=== PATIENT | female | born 1980 | race Caucasian/White ===

== ENCOUNTER 2017-08-15 21:26 | Emergency (ER) | END 2017-08-16 01:14 | disposition left against medical advice (07) ==

== ENCOUNTER 2018-02-16 17:42 | Emergency (ER) | END 2018-02-16 21:55 | disposition home or self-care (01) ==

== ENCOUNTER 2018-11-13 19:09 | Emergency (ER) | payer MEDICAID, OTHER ==
[~2018-11-13] VITALS: Ht 170.2 cm; Wt 128.2 kg
[~2018-11-13 19:09] MED LIST: IBUP-1542 PO
[2018-11-13 19:18] VITALS: Ht 170.2 cm; Wt 128.2 kg
[2018-11-13] MEDS ORDERED: KETOROLAC 30 MG INJ IM STA (20:45)
--- NOTE | 2018-11-13 20:45 | ERD ---
ER Documentation Chief Complaint Chief Complaint c/o rt knee pain. states was walking downstairs and missed a step. HPI 38-year-old female presents emergency department with complaints of right knee pain. Stated that she was walking and stair, this morning at around 6 AM when she accidentally missed a step, twisted her right knee. She was able to walk but with pain after the injury. LMP: Last month. A0. Denies headache, head injury, loss of consciousness, dizziness, neck pain, neck stiffness, throat pain, difficulty swallowing, difficulty breathing lying flat, shoulder pain, chest pain, back pain, abdominal pain, nausea, vomiting, constipation, diarrhea, urinary symptoms, or possibility being , loss of bowel and bladder control,numbness or tingling sensation, calf pain, recent travel, recent major surgery in the last 3 weeks, calf pain, recent long travel, recent exposure to any illness, recent antibiotic use in the last 3 months, fever, chills, seizures. Past medical history: Surgical history: Social: Denies smoking, use of alcoholic beverages, use of illegal drugs. ROS All systems reviewed and are negative except as per history of present illness. Medications Home Meds Active Scripts Ibuprofen* (Motrin*) 800 Mg Tab, 800 MG PO Q6H PRN for PAIN AND OR ELEVATED TEMP, #30 TAB Prov:MATHEW LOPEZ 11/13/18 Ibuprofen* (Ibuprofen*) 600 Mg Tablet, 600 MG PO Q6 for 3 Days, TAB Prov:NIEVES HENRIQUEZ 02/16/18 Allergies Allergies: Coded Allergies: No Known Drug Allergies (Verified Allergy, Unknown, 11/13/18) PMhx/Soc Medical and Surgical Hx: pt denies Medical Hx, pt denies Surgical Hx Hx Alcohol Use: Yes (OCCASIONAL) Hx Substance Use: Yes (MARIJUANA) Hx Tobacco Use: No Smoking Status: Current every day smoker Physical Exam Vitals Vital Signs Date Temp Pulse Resp B/P (MAP) Pulse Ox O2 O2 Flow FiO2 Time Delivery Rate 11/13/18 72 152/95 98 Room Air 23:15 (114) 11/13/18 99.3 85 20 165/89 97 19:18 (114) Physical Exam Const: No acute distress Head: Atraumatic Eyes: Normal Conjunctiva ENT: Normal External Ears, Nose and Mouth. Neck: Full range of motion. No meningismus. Resp: Clear to auscultation bilaterally Cardio: Regular rate and rhythm, no murmurs Abd: Soft, non tender, non distended. Normal bowel sounds Skin: No petechiae or rashes. Color appears normal for ethnicity. Back: No midline or flank tenderness Ext: No cyanosis, or edema. Right knee: No obvious deformity. Pain on range of motion. No obvious swelling. Skin is not warm to touch. Full range of motion. Negative drawer sign. Right calf is no tenderness to palpation. Negative right straight leg test. Right ankle is unremarkable. Negative right Chu's sign. Right pedal pulses within normal limits. Right toes good and full range of motion. Capillary refills to right lower extremity are less than 2 seconds. Bilateral hips are stable and unremarkable. Left lower extremity is unremarkable. Neur: Awake and alert Psych: Normal Mood and Affect Results 24 hrs Laboratory Tests Test 11/13/18 21:07 POC Beta HCG, Qualitative NEGATIVE Current Medications Medications Dose Sig/Raquel Start Time Status Last (Trade) Ordered Route PRN Stop Time Admin Dose Reason Admin Ketorolac 30 mg ONCE STAT 11/13/18 DC 11/13/18 Tromethamine IM 20:45 21:16 (Toradol) 11/13/18 20:47 Procedures/MDM Diagnostic tests: POC urine : Negative. X-ray of the right knee: 1. No gross evidence of acute fracture dislocation of the right knee. Treatment: Toradol IM. Robbin wrap. Crutches with crutch training was provided. Re-evaluation: No neurovascular deficit prior to and after the application of Robbin wrap. Differential diagnosis I have low suspicion for displaced fracture, septic joint, compartment syndrome, Lisfranc fracture, DVT. Final diagnosis: Right knee sprain. Prescription: Motrin. Follow-up with PCP in the next 24-48 hours. PCP to refer patient to orthopedic doctor in the next 24-48 hours. Come back here in the emergency department for any new symptoms or any worsening symptoms. All questions and concerns were answered. Patient and family members verbalized understanding and agreed with plan of care. Hemodynamically stable on discharge. Departure Diagnosis: Primary Impression: Knee pain Additional Impression: Knee injury Condition: Stable Additional Instructions: Follow-up with PCP in the next 24-48 hours. PCP to refer patient to orthopedic doctor in the next 24-48 hours. Come back here in the emergency department for any new symptoms or any worsening symptoms. MATHEW LOPEZ Nov 13, 2018 20:45
[2018-11-13] MEDS ORDERED: IBUP800T48 PO (22:59)
[2018-11-13 23:15] VITALS: BP 152/95; PULSE 72
== END 2018-11-13 23:15 | disposition home or self-care (01) ==
LOC: FTE 19:09
DX: S89.91XA Unspecified injury of right lower leg, initial encounter (principal); F17.210 Nicotine dependence, cigarettes, uncomplicated; X50.1XXA Overexertion from prolonged static or awkward postures, initial encounter; Y92.9 Unspecified place or not applicable
CPT/HCPCS: 73562; 81025; 96372; 99284; J1885

== ENCOUNTER 2019-06-01 10:39 | Emergency (ER) | payer MEDICAID ==
[~2019-06-01] VITALS: Ht 170.2 cm; Wt 97.7 kg
[~2019-06-01 10:39] MED LIST changes: +CEPH-443 PO; +HYDR-4011 PO; +IBUP800T48 PO; +MUPI22OI2 TOP; +NAPR-985 PO
[2019-06-01 10:42] VITALS: BP 177/99; PULSE 90; RESP 18; Ht 170.2 cm; Wt 97.7 kg
[2019-06-01] MEDS ORDERED: ONDANSETRON (ODT) 4 MG TAB ODT STA (11:04)
[2019-06-01] MEDS ORDERED: DIPHTH/TET/ACEL PERTUSS (ADULT) 0.5 ML VIAL IM* ONE (11:30)
[2019-06-01] MEDS ORDERED: HYDROCODONE/APAP (5/325) TAB PO ONE (11:30)
== END 2019-06-01 13:21 | disposition home or self-care (01) ==
LOC: FTE 10:39
DX: S90.02XA Contusion of left ankle, initial encounter (principal); W01.0XXA Fall on same level from slipping, tripping and stumbling without subsequent striking against object, initial encounter; Y92.9 Unspecified place or not applicable; Z23 Encounter for immunization
CPT/HCPCS: 29515; 73610; 90715; Z7610; 90471